=== PATIENT | male | born 1950 | race Caucasian/White ===

== ENCOUNTER → 2021-12-29 | Outpatient (CLI) | payer OTHER ==
[~2021-12-29] MED LIST: ADULT LOW DOSE81 MG PO; LANTUS SOL100 UNIT/1 SQ; LIPITOR80 MG PO; LISINOPRIL40 MG PO; METFORMIN HCL500 MG PO; NOVOLOG FL100 UNIT/1 SQ; OMEPRAZOLE20 MG PO; VITAMIN B-121000 MC3 PO; VITAMIN D325 MC6 PO
[2021-12-29 11:07] LABS: HEMOGLOBIN 13.9 gm/dl (14.0-17.5); RED BLOOD COUNT 4.65 M/UL (4.20-5.50); WHITE BLOOD COUNT 5.1 K/UL (4.5-11.0)
[2021-12-29 11:20] LABS: BUN/CREATININE RATIO 24 (0-10)
== END ==
LOC: OPSV2 12-13 10:00 → EDSTATUS 09:00 → OPSV2 09:00
PROVIDERS: Orthopaedic Surgery
DX: Z01.818 Encounter for other preprocedural examination (principal); M19.012 Primary osteoarthritis, left shoulder; E11.9 Type 2 diabetes mellitus without complications; R94.31 Abnormal electrocardiogram [ECG] [EKG]; I25.2 Old myocardial infarction; I51.7 Cardiomegaly
CPT/HCPCS: 71046; 80048; 83036; 85025; 93005